=== PATIENT | male | born 1960 | race Caucasian/White ===

== ENCOUNTER 2021-12-09 07:05 | Emergency (ER) | payer OTHER, SELFPAY ==
[2021-12-09 07:06] VITALS: BP 126/80; PULSE 86; RESP 16; TEMP 36.3; O2SAT 98; BMI 27.4
--- NOTE | 2021-12-09 08:00 | EX.ED.DYSGE1 ---
HPI History of Present Illness Chief Complaint: General Illness Informant: patient and spouse/S.O. Narrative Narrative: Patient presents with what they feel is anxiety. He has a history of anxiety. He had an episode of anxiety with depression and suicidal thoughts many years ago but this was triggered by prednisone intake. He has not been on any medicine since. He started a new job 3 weeks ago and the anxiety has gotten very bad. He is not sleeping well. He is not eating well. He has lost 15 pounds. He gets dry heaves. He has acid production. He also has exacerbation of gout in the right ankle. He saw his primary doctor for that yesterday. He was also started on Paxil yesterday but has only had 1 dose. He presents today because he just does not feel well and is nauseated. Nothing really makes his symptoms better. PFSH [facility] Medical History Anxiety Home Medications alprazolam 0.5 mg tablet (Xanax) 0.5 mg PO QHS PRN anxiety 7 days #7 tabs 12/09/21 [Rx Last Taken Unknown] hydroxyzine HCl 25 mg tablet 1 tab PO Q8H PRN PRN Anxiety 12/09/21 [History Last Taken Unknown] paroxetine HCl 20 mg tablet 1 tab PO DAILY 12/09/21 [History Last Taken Unknown] Allergy/AdvReac Type Severity Reaction Status Date / Time prednisone AdvReac Other Verified 12/09/21 07:08 Surgical History Hx of knee surgery Social History Smoking Status: Never smoker ROS ROS ED Constitutional Constitutional ED: Denies chills or fever(s) Eyes Eyes: Denies change in vision ENT ENT ED: Denies rhinorrhea or sore throat Cardiovascular Cardiovascular: Denies chest pain, palpitations or racing heartbeat Respiratory/Chest Respiratory/Chest: Denies cough or dyspnea Gastrointestinal Gastrointestinal: Reports abdominal pain, nausea and vomiting; Denies constipation or diarrhea Genitourinary Genitourinary ED: Denies dysuria Musculoskeletal Musculoskeletal: Reports other Details: Right ankle pain Integumentary Denies rash Neurologic Neurologic: Denies headache(s), paresthesias or weakness Psychiatric Psychiatric: Reports anxiety; Denies suicidal ideation or suicidal thoughts Endocrine Endocrinology: Denies polydipsia or polyuria Hematologic/Lymphatic Hematologic/Lymphatic: Denies easy bleeding or easy bruising Allergic/Immunologic Allergic/Immunologic ED: Denies urticaria EXAM Physical Exam Const Vital Signs: 12/09/21 07:06 12/09/21 07:39 12/09/21 09:59 Temperature 97.4 F L Temperature Source Temporal Pulse Rate 86 73 Respiratory Rate 16 14 Respiratory Effort Normal Non-Labored Respiratory Pattern Normal Blood Pressure 126/80 H 122/85 H Blood Pressure Mean 95 97 Pulse Ox 98 97 Oxygen Delivery Method Room Air Room Air 12/09/21 11:14 Temperature Temperature Source Pulse Rate Respiratory Rate 16 Respiratory Effort Respiratory Pattern Blood Pressure Blood Pressure Mean Pulse Ox Oxygen Delivery Method Positive well nourished and well developed General Appearance ED: well developed HEENT Reports dry mucous membranes Mouth ED: Yes dry mucous membranes Mouth: dry mucous membranes Eyes PERRL General Eye ED: Negative for pale conjunctiva or scleral icterus Neck no lymphadenopathy Chest Wall inspection of chest normal Resp normal respiratory effort and clear to auscultation bilaterally Cardio regular rate, regular rhythm and no murmurs GI normal to inspection, nondistended, normoactive bowel sounds and non-tender GI Narrative: Patient has epigastric discomfort but he has no tenderness on exam. Palpation: soft Back/Spine no CVA tenderness Extremity Extremity Narrative: There is some swelling mostly laterally around the right ankle. No erythema. He can move it back and forth. Neuro oriented x3 Psych Psych Narrative: Mildly flat affect. Skin no rashes or lesions noted MDM MDM MDM Narrative Medical decision making narrative: Patient CBC shows no marked abnormalities. Electrolytes are normal. Total bilirubin is minimally up. Urine is clear. Tox is negative. I talk with the patient. He has significant anxiety related to a new job. He states he has had brief thoughts of self injury. He really has not thought of hurting himself but thought that if he did not wake up it would be okay. He is very honest about this. I appreciate that. I did have social work see him. He and his tried to get into counseling but the earliest appointment they can get is February. Social work agrees that he does not really need to come in the hospital. But they were able to get him hooked up with intensive outpatient psychiatry. Patient will continue his current meds. I will write for a few Xanax mostly to take at night. He was diagnosed with gout in the ankle yesterday. He is not an appropriate candidate for steroids because of his prior issues. He will use Naprosyn twice a day. This is [id number]. He will return with fevers chills sweats worsening pain. He also return if he has increasing thoughts of suicide. Lab Data Attestation: I reviewed the patient's lab results. Labs: Laboratory Results - last 24 hr 12/09/21 12/09/21 12/09/21 08:04 08:04 08:04 WBC 8.0 RBC 4.76 Hgb 15.5 Hct 45.3 MCV 95.2 H MCH 32.6 H MCHC 34.2 RDW Std Deviation 44.2 H RDW Coeff of Hillary 12.4 Plt Count 175 MPV 10.1 Immature Gran % (Auto) 0.300 Neut % (Auto) 73.2 H Lymph % (Auto) 15.8 L [place] % (Auto) 10.0 Eos % (Auto) 0.3 Baso % (Auto) 0.4 Absolute Neuts (auto) 5.8 Absolute Lymphs (auto) 1.26 Nucleated RBC % 0 Sodium 138 Potassium 4.2 Chloride 105 Carbon Dioxide 28.0 Anion Gap 5 BUN 13 Creatinine 0.94 Estim Creat Clear Calc 95.63 Est GFR (MDRD) Af Amer 105 Est GFR (MDRD) Non-Af 87 BUN/Creatinine Ratio 13.8 Glucose 104 Calcium 9.6 Total Bilirubin 1.10 H AST 28 ALT 36 Alkaline Phosphatase 62 Total Protein 7.7 Albumin 3.6 Globulin 4.1 Albumin/Globulin Ratio 0.9 Lipase 53 L Urine Color Urine Clarity Urine pH Ur Specific In[place] Urine Protein Urine Glucose (UA) Urine Ketones Urine Occult Blood Urine Nitrite Urine Bilirubin Urine Urobilinogen Ur Leukocyte Esterase Urine RBC Urine WBC Ur Squamous Epith Cells Urine Bacteria Urine Mucus Urine Opiates Screen Urine Methadone Screen Ur Barbiturates Screen Ur Phencyclidine Scrn Ur Amphetamines Screen MDMA (Ecstasy) Screen U Benzodiazepines Scrn Urine Cocaine Screen U Cannabinoids Screen Ur Drug Screen Comment Ethyl Alcohol < 3.0 12/09/21 12/09/21 09:59 09:59 WBC RBC Hgb Hct MCV MCH MCHC RDW Std Deviation RDW Coeff of Hillary Plt Count MPV Immature Gran % (Auto) Neut % (Auto) Lymph % (Auto) [place] % (Auto) Eos % (Auto) Baso % (Auto) Absolute Neuts (auto) Absolute Lymphs (auto) Nucleated RBC % Sodium Potassium Chloride Carbon Dioxide Anion Gap BUN Creatinine Estim Creat Clear Calc Est GFR (MDRD) Af Amer Est GFR (MDRD) Non-Af BUN/Creatinine Ratio Glucose Calcium Total Bilirubin AST ALT Alkaline Phosphatase Total Protein Albumin Globulin Albumin/Globulin Ratio Lipase Urine Color Yellow Urine Clarity Clear Urine pH 7.0 Ur Specific Inland 1.005 Urine Protein Negative Urine Glucose (UA) Normal Urine Ketones 15 H Urine Occult Blood Negative Urine Nitrite Negative Urine Bilirubin Negative Urine Urobilinogen 4 H Ur Leukocyte Esterase Negative Urine RBC 0 SEEN Urine WBC 0 SEEN Ur Squamous Epith Cells 0 SEEN Urine Bacteria 0 SEEN Urine Mucus 0 SEEN Urine Opiates Screen NEGATIVE Urine Methadone Screen NEGATIVE Ur Barbiturates Screen NEGATIVE Ur Phencyclidine Scrn NEGATIVE Ur Amphetamines Screen NEGATIVE MDMA (Ecstasy) Screen NEGATIVE U Benzodiazepines Scrn NEGATIVE Urine Cocaine Screen NEGATIVE U Cannabinoids Screen NEGATIVE Ur Drug Screen Comment Ethyl Alcohol Discharge Plan Triage Chief Complaint: General Illness ED Provider: Joe Calero Dx/Rx/DC Orders Clinical Impression: Anxiety, Acute gout of right ankle Instructions: Anxiety Disorders Tx Therapy, ED Gout Diet Prescriptions: New alprazolam [Xanax] 0.5 mg tablet 0.5 mg PO QHS PRN (Reason: anxiety) 7 Days Qty: 7 0RF No Action paroxetine HCl 20 mg tablet 1 tab PO DAILY hydroxyzine HCl 25 mg tablet 1 tab PO Q8H PRN PRN (Reason: Anxiety) Primary Care Provider: Chato Platt Referrals: [facility] Doctor,Out of [NON-STAFF] - 3-5 Days Activity Restrictions/Additional Instructions: Follow-up with intensive outpatient psychiatry as planned. Disposition Disposition: Home, Self Care
[2021-12-09] MEDS: 0.9% Normal Saline 1,000 ML 1000 ML IV (08:09)
[2021-12-09] MEDS: Ondansetron 4 MG/2 ML Vial IV (08:10)
[2021-12-09 08:14] LABS: Absolute Lymphocyte Count 1.26 X10^3/uL (0.83-4.51); Absolute Neutrophil Count 5.8 X10^3/uL (2.0-7.7); Basophil# 0.03 X10^3/uL; Basophil% 0.4 % (0-1); Eosinophil# 0.02 X10^3/uL; Eosinophils% 0.3 % (0-5); Hematocrit 45.3 % (40-54); Hemoglobin 15.5 g/dL (13.0-16.5); Lymphocyte # 1.26 X10^3/ul (0.83-4.51); Lymphocyte % 15.8 % (19-41); Mean Corp Hgb Conc 34.2 g/dL (32-36); Mean Corpuscular Hgb 32.6 pg (27.0-32.0); Mean Corpuscular Volume 95.2 fL (80-94); Mean Platelet Vol. 10.1 fl (6.2-12.0); NRBC Flagged by Analyzer 0 % (0-5); Neutrophil # 5.84 X10^3/uL (2.7-7.7); Neutrophil % 73.2 % (47-70); Platelet Count 175 K/mm3 (150-450); RBC Distribution Width CV 12.4 % (11.6-14.6); RBC Distribution Width SD 44.2 fl (35.1-43.9); Red Blood Count 4.76 M/mm3 (4.6-6.2)
[2021-12-09 08:26] LABS: ALB/GLOB Ratio 0.9 RATIO (0.9-2.4); AST(SGOT) 28 U/L (15-37); Alanine Aminotransfer ALT/SGPT 36 U/L (16-61); Albumin, Serum 3.6 g/dL (3.2-5.0); Alkaline Phosphatase 62 U/L (45-117); Anion Gap 5 (5-15); BUN 13 mg/dL (7-18); BUN/Creat Ratio 13.8 RATIO (10-20); Calcium,Total 9.6 mg/dL (8.5-10.1); Chloride 105 mmol/L (98-107); Creatinine, Serum 0.94 mg/dL (0.70-1.30); EST Glomerular Filtration Rate 87 mL/min (>60); Est Glom Filt Rate - Afr Amer 105 mL/min (>60); Estimated Creatinine Clearance 95.63 ml/min; Globulin 4.1 g/dL (2.2-4.2); Glucose 104 mg/dL (74-106); Lipase 53 U/L (73-393); Potassium 4.2 mmol/L (3.5-5.1); Protein, Total 7.7 g/dL (6.4-8.2); Sodium Level 138 mmol/L (136-145)
[2021-12-09 08:29] LABS: Alcohol, Blood (Medical)-Serum < 3.0 mg/dL
[2021-12-09 09:59] VITALS: BP 122/85; PULSE 73; RESP 14; O2SAT 97
[2021-12-09 10:01] LABS: Bacteria 0 SEEN /hpf (None Seen); Mucous, Urine 0 SEEN /hpf (<or=2+); Red Blood Cells-Urine 0 SEEN /hpf (0-5); Squamous Epithelial Cells - UA 0 SEEN /hpf (0-5); White Blood Cells 0 SEEN /hpf (0-5)
[2021-12-09 10:11] LABS: Color, Urine Yellow (Yellow); Glucose, Dipstick Normal (Normal); Ketone-Dipstick 15 mg/dl (Negative); Leukocyte Esterase-Dipstick Negative /ul (Negative); Nitrite-Dipstick Negative (Negative); Occult Blood-Urine Negative /ul (Negative); Protein-Dipstick Negative (Negative); Specific Gravity, Urine 1.005 (1.002-1.030); Urine Bilirubin Dipstick Negative (Negative); Urine Clarity Clear (Clear); Urine Urobilinogen 4 mg/dl (Normal)
[2021-12-09 10:27] LABS: Amphetamine Urine VISTA NEGATIVE (<1000 ng/mL); Barbiturate Urine VISTA NEGATIVE (< 200 ng/mL); Benzodiazepine Urine VISTA NEGATIVE (< 200 ng/mL); Cocaine Urine VISTA NEGATIVE (< 300 ng/mL); Ecstacy Urine VISTA NEGATIVE (< 500 ng/mL); Methadone Urine VISTA NEGATIVE (< 300 ng/mL); PCP Urine VISTA NEGATIVE (< 25 ng/mL); THC Urine VISTA NEGATIVE (< 50 ng/mL); Vista UDS pH Range 6
[2021-12-09 11:14] VITALS: RESP 16
--- NOTE | 2021-12-09 11:33 | ED.RN ---
PER DR MCKEE, PT NEEDS RN EMBEDDED ASSESSMENT. LET RN EMBEDDED KNOW
--- NOTE | 2021-12-09 12:00 | CM.ED ---
Social Work Assessment Social Work Psychiatric Assessment Reason for consult: Anxiety Informant(s) Pt, Pt?s Aure Chief Complaint: Pt states that he has been having anxiety. Pt states that he has recently switched jobs and he is not doing well with switching jobs. Pt states that he is a really quiet carl and not social. Pt states that he does have history of Anxiety and about 15 years ago je was on medication. Pt states that he called his [facility] yesterday and was prescribed medication. Pt states he gets sick to his stomach, he becomes nauseous, pt states that he starts to get Anxious and then one thought leads to another thought which makes him more anxious. Pt states that he doesn?t eat a lot lately and if he does eat, he throws it up. Marital/Social History: Marital Status: Living Situation: Pt states that [place] [facility] [place] . Support/Resources: Pt states his Aure. History: None Education and Employment History: Pt states that he graduated high school. Pt states that he did not go to college. Pt states that he just got a new job after being at his old job for 19 years. Pt states that the new job is closer to his home. Pt states that he works at a [employer]. Pt states that in school he was always teased and hung out with his self. Pt states that he played Baseball and Basketball. Mental Health Treatment/History: Pt states that he is not currently seeing a counselor. Pt states that he tried reaching out to a few agencies but states the earliest he could get in to [facility] was February and the earliest he could get to a different agency was in July. Pt states he has no psych hospitalization history and has never seen a therapist or counselor. Pt states that getting on medication would be helpful and talking to his is very helpful. Triggers/Stressors: Pt states switched jobs and being in the different environment. Pt states that he switched jobs due to this job being closer to home. Pt states that he is hoping to retire soon but states that he does not have the financially ready yet. SW spoke with pt about talking to a financial administrative assistant. Pt states he has not spoken to the financial administrative assistant yet. Pt states that he wants to do a good job at his job and he feels like he is not doing a good job. Pt states that he has stress a lot. Coping Skills: Pt states being home, taking his rescue dog for a walk, being with his , and being with his two daughters. Pt states that he thinks he is going to ask his employer for a few weeks off and will start taking his new medication. Pt states that he is hopeful that his new medication will help. Abuse Issues: Pt states none Substance Abuse Hx: Pt states none Risk to Self/Others: ? Suicidal: Pt denied any current suicidal thoughts/plans/ideations. Pt states that last night he felt bad and had a prayed that if he just stopped breathing it would be ok and that he is ready to go with the Lord. Pt states that he had no suicidal plan. Pt with no history of suicide attempts. Pt states that he does not want to . Pt states that if his Anxiety was better, he would not have those thoughts at all. Pt states that about 19 years ago, he had the same thoughts that it would be ok if he stopped breathing or it would be ok if he didn?t wake up. Pt states that he had two young daughters at that time though. Pt states that the Lord must have something else for him since he is still here. Pt states that his and family are important to him and important to live for them and carry on. ? Homicidal: None ? Violence: None Mental Status Exam: Orientation: Pt is alert and orientated x4. Memory: Good Appearance/General Behavior: Clean/appropriate, Directable, Pleasant Mood/Affect: Appropriate, Pt states that he feels calm now. Communication Pattern: Responds to questions Thought Process: Appropriate General Intellectual Functioning: Average Judgment: Fair Insight: Fair VICKY spoke with pt about different counseling resources and provided pt with Counseling Resources for [facility] and educated pt [facility]. Pt requests his to come back to room. VICKY discussed with MD Calero. Pt to discharge home. VICKY informed MD Calero that pt is agreeable to a referral to [facility], SW to make referral. VICKY back in to speak with pt and pt?s Aure present in room. VICKY discussed counseling resources and [facility] with pt and Aure. Both pt and Aure are agreeable to referral being made to [facility]. Pt completed Safety Plan. VICKY provided original to pt. SW to make referral to [facility]. Plan: Pt to discharge home. Safety Plan completed. Referral to be made to [facility]. Glenna Hawley MSW, VP PUBLIC RELATIONS
--- NOTE | 2021-12-09 22:51 | CM.ED ---
Social Work Note Referral made to [facility]. Glenna Hawley MYSQL DEVELOPER, ENGROSSER
--- NOTE | 2021-12-10 20:43 | CM.ED ---
VICKY called Flaco Morgan cell phone number x2. Voice mail number not set up yet. VICKY called patient's , Aure Morgan and her voice mail number was not set up yet. VICKY attempted to follow up with patient regarding safety plan but due to patient's voice mail not being set up social professionals was unable to speak to patient. Copy of safety plan put in medical record Sharifa BENDER
== END 2021-12-09 12:58 | disposition home or self-care (01) ==
PROVIDERS: Emergency Provider Emergency Medicine; PCP Family Medicine; Visit Provider Emergency Medicine
DX: F41.9 Anxiety disorder, unspecified (principal); M10.071 Idiopathic gout, right ankle and foot; Z79.899 Other long term (current) drug therapy
CPT/HCPCS: 80053; 80307; 81001; 82077; 83690; 85025; 96365; 96375; 99283; J7030; A4216; J2405; J3490

== ENCOUNTER 2021-12-14 08:00 | Outpatient (RCR) | payer OTHER, SELFPAY ==
--- NOTE | 2021-12-14 08:45 | BH.NA_ITS ---
Physical Data - Vital Signs Pulse Rate: 91 Blood Pressure: 139/91 - Height/Weight Height: 1.85 m Weight:: 90.718 kg Weight in Pounds: 200.0 lbs Current Medication Compliance - Medication Compliance Do you take your medication as prescribed?: Yes Nutritional History - Appetite Nutritional Instructions:: If client shows signs of a swallowing problem, weight change of 10 pounds or more in the last month, or is on a diabetic diet, the physician will review and request a dietitian consult, as appropriate. All unintentional weight loss will be referred to the physician for decision on need for dietitian consult. Describe your appetite:: Poor - Client states he has lost 20lbs in the last month. Client states he notes a decrease in his appetite and usually has nausea when he attempts to eat. Client states his eating has been slightly improved in the last week. Functional Assessment - Sleep Pattern Describe any problems with sleeping: Client states he has slept about 7-8 hours per night in the last week while taking Hydroxyzine at bedtime. - Activities Motor Activity:: Functional - Client appears anxious, fidgeting at times Sensory/Communication Assess - Vision Problems Do you have any vision problems?: Glasses - Communication Problems Do you have difficulty understanding what people are saying?: No Medical Problems/History - Musculoskeletal Conditions Musculoskeletal: Other (See comments) - gout- right ankle, recent diagnosis - Pain Assessment Do you have acute or chronic pain?: No Surgical History - Surgical History Have you had any surgeries? If so, list type and date:: No Substance Abuse - Substance Abuse Please describe substance abuse in the last 30 days:: Client denies alcohol, tobacco or substance use. Client states he occasionally drinks coffee, but not daily. Mental Status Summary - Mental Status Significant Findings/Observations on Appearance and Mood:: Client is alert and oriented x 4. Client is casually groomed with good hygiene. Client is wearing a mask. Client's speech has normal rate and volume. Client appears somewhat anxious, fidgeting at times. Client makes logical associations and has normal processing. Client denies delusions/hallucinations. Client denies SI. Suicide Assessment - Suicidal Ideation Are you currently or have you been suicidal in the past?: No - client has had some passive thoughts of , no SI Suicidal Intentional Rating Scale (SIRS): No suicidal thoughts (past or present) Physician Notification: If Active suicidal thoughts/Will not contract for safety is checked, contact physician and document in the Physician Notification section below. Assault History/Potential Past Psychiatric History - MH Treatment Hx Age of first mental health symptoms: Client states he has had high levels on anxiety in the past, maybe 20 years ago, but states he has never been on medication for mental health until very recently. Describe (age, circumstance, etc) any past hospitalizations: None. Current providers for mental health treatment (counselor, psychiatrist, insurance case manager, etc.): None. Fall Risk Assessment - Age Age: Less than 60 - Mental Status Mental Status: Willing & able to ask for assistance when needed - Physical Status Physical Status: No problems - Impairments Impairments: None - Elimination Elimination: Continent AND independent - Gait or Balance Gait or Balance: Walks independently - Hx of Falls History of falls in the past 6 months: No known history - Medications/Substances Psychotropics:: Antidepressants, Antihistamines (e.g. Benadryl) Medications/substances used within the past 24 hours or ordered to administer: 1-2 of the medications/substances listed above - Total Score Total Points:: 1 RN Summary of Impressions - Impressions Recommendations: Include psychiatric and medical issues, treatment planning recommendations, and discharge planning needs. Impressions: Psychiatric Issues: 1. Generalized anxiety disorder. 2. Major depressive disorder, recurrent, severe without psychosis - Level of Care How do the client's current symptoms and functional deficits support need for this level of care?: Client was referred to IOP after recent ER visit for an xiety and passive thoughts of on 12/09. Client states he just changed jobs after about 20 years of having the same job and has had very high levels of anxiety since. Client denies SI at this time. Client does report racing thoughts and decreased concentration. Client states his biggest concern is his recent weight loss of 20 lbs in the last month and his decrease in appetite and feeling nauseous when he tries to eat. Client states he feels he is beginning to feel weaker from lack of appetite and he is worried what this unintentional weight loss will do to his overall health. Client is currently not working due to mental health impacting function. Client recently started Paxil and states in the last week his appetite has improved slightly and he has been able to eat small amounts of food. IOP will promote gains and prevent further decompensation while providing social support and skills training.
[2021-12-14 10:01] VITALS: BP 139/91; PULSE 91
--- NOTE | 2021-12-14 10:05 | BH.SGPN.GN ---
Behaviors/Verbalizations/Mental Status: Client alert and oriented, casually dressed and groomed. Eye contact good. Motor activity appropriate. Speech within normal limits. Affect constricted, mood anxious. Thoughts linear, logical, no signs of hallucinations or delusions. Client Response/Progress/Benefit: [] Client was an active participant in activity and taking notes during group discussion. Attentive during psychoeducation on coping skills, why people use unhealthy coping skills, and how to replace unhealthy coping skills. Client did not shared much in put due to visible nervousness of first day at IOP. Benefited from increased understanding of unhealthy coping skills and the need for developing healthy interna and external coping skills. Client's first day of IOP and will continue to prevent decompensation, maintain safety, increase management of anxious feelings, and improve daily functioning. Narrative Note: []
--- NOTE | 2021-12-14 11:05 | BH.SGPN.GN ---
Behaviors/Verbalizations/Mental Status: [] Client alert and oriented, neatly dressed and groomed. Eye contact fair to good. Motor activity appropriate. Speech within normal limits. Affect constricted, mood anxious. Thoughts linear, logical, no signs of hallucinations or delusions. Client Response/Progress/Benefit: [] Client first week in IOP tx and still adjusting to group environment; however, responded well to session AEB taking notes and providing input and examples throughout. Group discussed the different categories of coping skills which included distraction, emotional release, grounding, self-love, and thought challenging. Client created a coping skill menu identifying various skills he could try in each category. Client?s coping skill menu included: engaging in more hobbies such as gardening, shifting focus on what is in his control, and cooking meals with his . Appeared to benefit from increasing repertoire of healthy coping skills. Will continue tx to further promote mood stability, improve distress tolerance skills, maintain safety, and prevent decompensation. Narrative Note: []
--- NOTE | 2021-12-14 12:32 | BH.PSY.EVA_ITS ---
Psychiatric Evaluation Initial Evaluation Initial Evaluation: History of Present Illness: [] The patient is a 61-year-old male with a history of depression and anxiety who was referred to the [facility] behavioral health IOP program by the [facility] emergency room after the patient went to the emergency room on December 09, 2021 due to severe anxiety and passive thoughts of . The patient states that his anxiety has increased since giving 2 weeks notice at his old job which she had held for 19 years. 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 However since he made this decision his anxiety has been increasing to the point where he has been unable to eat much secondary to severe anxiety with nausea and dry heaves and sometimes vomiting after eating. He has lost 20 pounds in the past 4 weeks and he feels weak due to this and this bothers him and makes his mood more depressed. He has been for 32 years and currently lives with his who works as a court supervisor for [employer]. His is his source of primary support and he describes her marriage as good. The patient has been unable to work since less than a week ago due to these mental health symptoms. He drinks coffee not even daily and no energy drinks. He denies any history of self-harm. He currently has depressed mood and occasional crying episodes. He denies hopelessness, worthlessness or guilt. He has been enjoying walking his dog and being outside and with family. His appetite has been very decreased and as described above he has lost lots of weight. His sleep is now better with the medication and it is now about 7 hours a night. Energy level is low during the day he believes secondary to not being able to eat. Concentration is decreased and he admits to passive thoughts of in the past few weeks. He has had rare, fleeting suicidal ideation but he feels that suicide is wrong and his and daughter are protective factors for him against suicide. He denies any definitive plan for suicide and denies a ctive suicidal ideation. He also denies homicidal ideation, hallucinations, delusions or ching symptoms. He is a worrier by nature and has some racing thoughts. He denies panic attacks. He does some counting daily but it last for less than 1 hour a day and does not meet criteria for OCD. He denies eating disorder, trauma, PTSD, seizure or head trauma. Current Psychiatric Medications: [] Paxil 20 mg p.o. daily (x4 days now but forgot to take it today); Vistaril 25 mg up to 3 times daily as needed but he is only taking it at bedtime to help with sleep.; Xanax 0.5 mg p.o. nightly as needed (7 days worth given in the ER but he only took 1 of these). Past Psychiatric History: [] No psychiatric admissions ever. No suicide attempts ever. He was first severely anxious about 15 years ago after taking prednisone and becoming severely anxious and having passive thoughts of . He first had counseling about 20 years ago for anxiety over a job change also but did not take medication for this and this resolved with counseling alone. He was first depressed in fifth grade and anxious and did not want to go to school. He feels something happen but he does not remember what happened. He changed schools and then eventually was able to attend school. His first psychiatric medications he thinks are the current ones and does not remember taking any other meds. Substance Use History: [] Non-smoker. No vaping. No alcohol. No drugs. No marijuana. No rehab ever. Allergies: [] Prednisone (just anxiety and mood change) Medications: [] Psych meds only as dictated above. Past Medical History: [] Gout in right ankle which is better now. He has a history of blood clots in his leg and had some sort of procedure intravenously to fix this problem. He has had 1 arthroscopy on his knee but no other surgeries. He denies any other medical problems. Family Psychiatric History: [] His mother at age 79 from Parkinson's disease. His father at age 53 from cancer. He denies any mental health issues in the family. No suicides in the family. No substance issues known in the family. Personal/Social History: [] The patient was born and raised in [facility] and describes his childhood as normal. His parents were and his dad worked a lot and his mother drove for [employer] people and he says he was on his own a lot with his brothers. His mother was loving but his father was not demonstrative at all. He denies any physical, sexual or verbal or emotional abuse in the past. He has 4 brothers he is the second youngest. His youngest brother at age 19 of unknown known causes and this brother was only 2 years younger than the patient and was a big loss for the patient as they were very close and had the same friends. The patient also has a brother 7 years older, 5 years older and 3 years older than him and they are close. School was okay for the patient but in fifth grade there was some sort of issue he does not recall the nature of which had him not willing to go to school for about 6 weeks. His parents changed schools and then eventually was able to return to school. He played sports and was a pretty good athlete. He was teased in [employer] high in high school and did not have that many friends in 100 he has 2 adult daughters. He was at age 29 and has been for 32 years and has a good marriage and has 2 adult daughters. No other serious relationships. Legal History: [] No arrests. Has cdl driver's license. No DUIs. No . Review of Systems: [] He recently had some pain and swelling in his right ankle due to gout which is now better and he has had the GI symptoms as described in the present illness which she feels are due to anxiety. Vital Signs: [] Vital signs and exam reviewed in the records and reviewed in the nurses notes and updated and the patient is deemed medically able to participate in the IOP program. Mental Status Examination: [] The patient is a 61-year-old male who is seen wearing a mask due to the pandemic and is casually dressed and groomed with good hygiene. He has a randolph. He is cooperative during the interview but at times has some difficulty with remembering details. He has no psychomotor agitation or retardation. Eye contact is good and speech is normal rate and rhythm and fluent with no pressure. Mood is depressed and anxious. Affect is constricted. Thought process is goal-directed and organized. Thought content: There is evidence of recent passive thoughts of in recent weeks and there is evidence of rare, fleeting, passive suicidal ideation. There is no evidence of active suicidal ideation, plan for suicide, homicidal ideation, hallucinations, delusions or symptoms of ching. The patient feels suicide is wrong and his and daughters are protective against it. Reality testing is intact. Intelligence is average. Judgment is intact. Insight: Fair. Impulsivity: Low. Diagnoses: [] 1. Generalized anxiety disorder 2. Major depressive disorder, recurrent, severe without psychosis 3. Work issues Plan: [] The patient will start the IOP program at [facility] as the structure, support, education and group therapy will hopefully prevent worsening of the patient's symptoms which might require hospitalization. He felt safe during the interview and if it anytime he does not feel safe he will let us know or go to the emergency room. The risks, options, possible complications and side effects of the medications were discussed with the patient and he understands and accepts these. Discussion was had with the patient about options for treatment. The patient is tolerating the Paxil but has only taken it for 4 days and it may require several weeks to give him much benefit. Due to the fact that the patient is unable to eat and is losing weight and feels weak and is upset about this I offered the patient the option of Remeron 15 mg p.o. nightly to be added to the Paxil. The patient understands this will help him sleep, decreasing his anxiety and greatly helped his ability to eat and maintain his weight and stop losing weight. He understand that there is a risk of weight gain but he may be able to stop the Remeron in a month when the Paxil starts taking effect. In addition he feels he will be able to benefit from the IOP program if his anxiety is lessened faster than it will be with the Paxil. Prescription is sent in for Remeron 15 mg p.o. nightly. The patient will continue to follow-up with his outpatient providers and I will see the patient in follow-up in 2 weeks or as needed sooner.
--- NOTE | 2021-12-14 12:46 | BH.DR.ITP ---
Initial Treatment Plan Patient Information Visit Information: ADMISSION DATE: EXPECTED LOS: 4-6 weeks Problems/Symptoms Problem #1:: Anxiety Symptom:: Worry, racing thoughts, nausea, inability to eat, vomiting and weight loss secondary to anxiety Problem #2:: Depression Symptom:: Sadness, biological disruption of sleep and appetite, low energy, decreased concentration, recent passive thoughts of and rare, fleeting, passive suicidal ideation
--- NOTE | 2021-12-19 09:10 | BH.SGPN.GN ---
Behaviors/Verbalizations/Mental Status: [] Eye contact is good. Motor activity is appropriate. Appearance is casual. Speech is Appropriate. Mood is anxious. Affect is congruent. Thoughts are linear and logical. No evidence of psychosis. Reviewed daily check in sheet and no reports of suicidal ideations or intent. Client Response/Progress/Benefit: [] Pt participated when prompted. Attentive during group discussions. Emotion for today is anxious. Daily symptom tracker notes 5 for depression and /5 for anxiety. He reports that he has some relief over the weekend regarding his constant anxiety. He was able to distraction himself while watching a movie and while helping out his with certain tasks. He states that this is improvement as last week his anxious thoughts about work were constant and intrusive. Awareness that his anxiety is based primarily on change which he has struggled with in the past. Shared that he also noted improved sleep and appetite over the weekend. Progress noted per pt report however anxiety remained outside of a few hours of distraction. Benefited from group support, encouragement and feedback. Will continue in IOP to improve functioning to return to work, maintain safety, and to increaser healthy coping skills. Narrative Note: []
--- NOTE | 2021-12-19 10:10 | BH.SGPN.GN ---
Behaviors/Verbalizations/Mental Status: [] Client alert and oriented, casually dressed and groomed. Eye contact good. Motor activity appropriate. Speech within normal limits. Affect constricted, mood anxious. Thoughts linear, logical, no signs of hallucinations or delusions. Client Response/Progress/Benefit: [] Client responded well to session AEB contributing to discussion, taking notes, and listening attentively to others. Group discussed the benefits of managed anger and anger as a secondary emotion. Client completed anger iceberg worksheet, with Identifying underlying emotions that contribute to anger including the unexpected, misunderstanding, and anxiety. Appeared to benefit from increased knowledge of the underlying emotions that impact anger and increased self-awareness of the internal and external consequences of anger. Will continue IOP tx to prevent decompensation, as well as increase the use of healthy coping skills and decrease of anxious thoughts. Narrative Note: []
--- NOTE | 2021-12-19 13:00 | BH.MTP ---
Master Treatment Plan - Patient Information Program Physician:: Lynnette Caldera Primary Therapist:: Arias Jordan - Psychiatric Diagnoses Psychiatric Diagnoses:: 1. Generalized anxiety disorder. 2. Major depressive disorder, recurrent, severe without psychosis Diagnosis Code(s):: F41.1 - Estimated LOS Estimated LOS (in weeks):: 6 Problem/Goal #1 - Problem/Goal #1 Stated Goal:: Stabilize anxiety level while increasing ability to function on a daily basis AEB self-report and reduction of scores on the anxiety domain of the DSM-5 scales. Description of Barriers: Limited insight in anxiety and emotion regulation, limited coping skills, struggles significantly with change. Functional Impact: Pt has not been to work in a week due to overwhelming anxiety. Anxiety has also led to disrupted sleep, poor appetite, weight loss, and inability to complete daily tasks. Goal Relevant Strengths/Supports: motivated, strong support, hard-working - Objectives Objective #1 Stated Objective: Client will identify 2-3 anxiety triggers and 2 calming coping skills to reduce anxiety as shown by decreased DSM-5 cross cutting symptom measure scores. Interventions: Through individual and group counseling will help client increase awareness of anxiety triggers and educate client on the ways anxiety impacts overall health. Therapist will teach client various calming and mindfulness strategies to promote emotional regulation and reduction of anxiety. Therapist will encourage client to implement healthy coping skills on a regular basis. Discharge Criteria: Able to identify 2-4 thoughts, expectations, and triggers to anxiety and 2-4 ways to cope or reduce anxiety. Target Date: 02/01/22 Review Date: 01/11/22 Objective #2 Stated Objective: Client will identify 2-3 cognitive distortions that lead to rumination and learn 2-3 ways to manage these thoughts to better manage anxiety. Interventions: Through individual and group counseling will provide education on the most common cognitive distortions and teach client the connection between thoughts, emotions, and feelings. Therapist will assist client in identifying, challenging, and replacing dysfunctional thoughts with positive, more realistic thoughts. Discharge Criteria: Able to identify 2-3 common cognitive distortions used and 2-3 ways to challenge, reframe, or replace these distortions. Target Date: 02/01/22 Review Date: 01/11/22 Problem/Goal #2 - Problem/Goal #2 Stated Goal:: Alleviate depressive symptoms and return to previous level of effective functioning AEB by self-report and reduction of scores on the depression domain of the DSM-5 SCALES. Description of Barriers: Limited insight into depression and emotion regulation, limited coping skills, struggles significantly with change. Functional Impact: Pt's anxiety, intrusive thoughts, and inability to complete work lead to passive suicidal ideations and presentation to [facility] ER last week. If he continues to decompensate this will lead to further distress. Goal Relevant Strengths/Supports: motivated, strong support, hard-working, open to learning about mental health. - Objectives Objective #1 Stated Objective: Client will identify and replace 2-3 negative thinking patterns that reinforce depressive symptoms, self-hate, and negative self-talk. Interventions: Through individual and group counseling will provide psychoeducation on depression and help client increase awareness of warning signs and triggers. Therapist will promote client self-empowerment and self-esteem by helping client identify strengths, personal resilience factors, and positives of boundary setting. Discharge Criteria: Able to identify and replace negative thinking patterns. Target Date: 02/01/22 Review Date: 01/11/22
--- NOTE | 2021-12-19 13:00 | BH.PSA_ITS ---
Source of Information - Presenting Problems/Circumstances Problems, Referral Source, Mental Status, Client: Pt was referred to [facility] by [facility] ER after presenting in mental health crisis on 12/09/21. Pt completed crisis assessment for severe anxiety and survival ambivalence and referred to [facility] level of care. Psychiatric Presentation - Psych Issues & Need for Admission Psychiatric Issues:: Anxiety, depression, unable to work due to MH, poor sleep, poor appetite (lost 15lbs in 3 weeks), survival ambivalence. Past Psychiatric History - MH Treatment Hx Treatment History: Counseling 20 years ago for anxiety First hospitalization:: n/a Most recent hospitalization:: n/a Medication Trials:: No ECT Therapy:: No Age of first mental health symptoms: Pt reports that while in the 5th grade he was very depressed and anxious which led to missing school. Cannot recall much m ore than this. Describe (age, circumstance, etc) any past hospitalizations: n/a Current providers for mental health treatment (counselor, psychiatrist, caseworker intake, etc.): none currently Development & Family of Origin - Childhood Significant Childhood Events: none reported. Reports normal childhood. He recall that something happened at school when he was in the 5th grade which led to missing 6 weeks of school and eventually transferring to another school. - Family Who currently lives in your home?: Currently lives with his . Describe family composition:: for 32 years. He has two adult daughters. - Family History Family Hx of Psychiatric or AOD Problems: No hx of mental health or substance abuse in the family Ethnicity - Culture Do you identify yourself with any particular cultural, ethnic background, or community?: No - Sexuality Sexual Orientation: Heterosexual Spirituality - Yarsani Do you currently identify with any organized advent?: Methodist - Beliefs Is there a particular form of support from this community you can use for your recovery?: Yes Mental Status - Memory Recent Memory: Fair Remote Memory: Fair - Concentration Concentration: Poor - Eye Contact Eye Contact: Poor - Speech Speech: Repetitious, Soft - Thought Process Thought Process: Ruminations Insight: Poor Judgment: Poor Behavior: Anxious - Orientation Orientation: Time, Person, Place, Situation - Appearance Appearance: Appropriate - Mood Mood: Anxious, Sad - Affect Affect: Flattened Suicide Assessment - Suicidal Ideation Have you ever felt like hurting yourself?: Yes Please explain:: Pt reported to [facility] ER social work on 12/09/21 that he prayed that if he just stopped breathing it would be OK and he is ready to go with the Lord Were you using ETOH/drugs at the time?: No Suicidal Intentional Rating Scale (SIRS): Suicidal thoughts (past) Physician Notification: If Active suicidal thoughts/Will not contract for sa eliciay is checked, contact physician and document in the Physician Notification section below. Violent Behavior/Abuse History - Homicidal Ideation Do you have any homicidal thoughts? If so, explain:: No Is there a known potential victim? If yes, who:: No - Abuse Have you ever been abused?: No - Life Events Are there any other significant life events?: - Pt's younger brother when patient was 23 years old. - Safety Do you ever feel threatened in your home? If yes, describe:: No Adult Social History - Age 20 to Present Describe your current support system:: , 2 adult daughters Substance Use - Substance Substance Use Type: None Leisure/Social Activities - Interests What do you enjoy or might be interested in learning about?: Wants to learn how to manage his anxiety so he can return to work. Education & Occupational Histo - Education What is your level of education?: High School - Occupation List any current or past employment:: Pt was employed for 20 years at a [employer]. Recently quit and took on new job at another [employer] company. Service - Service Have you ever been in the ?: No Legal History - Records Have you had any past legal charges?: No Do you have any current legal charges?: No Have you ever been incarcerated? If yes, describe:: No - Court Orders Have you had any past court orders for psychiatric treatment?: No Do you have a present court order for psychiatric treatment?: No Problem Checklist - Current Problem Areas Problem List: Depressed mood/sad, Anxiety Discharge Planning Needs - Anticipated Follow-Up Primary Care Physician: Chato Platt Family and Caregiver Contacts:: Sonam Morgan- Release of Information Signed:: Yes Evidence Technician's Assessment - Client's Needs What are the client's feelings about the program?: He admits that he is anxious however hopeful that IOP will help him with anxiety and returning to work. What are the client's goals?: manage my anxiety and worry and to quit feeling like this all the time. What are the client's strengths?: hard worker, observant, motivated to learn. Diagnoses - Diagnoses Diagnosis #1:: Generalized Anxiety D/O Diagnosis #2:: Major depressive disorder, recurrent, severe without psychosis Interpretive Summary - Interpretive Summary Interpretive Summary: Pt is a 61 year old male with hx of [place]. No previous psychiatric admissions. Referred to [facility] by [facility] ER after presenting with mental health crisis on 12/09/21 for severe anxiety which was impacting functioning. During ER assessment pt reported survival ambivalence and passive thoughts of prayed that if he stopped breathing it would be OK. Denies active SI, plan, or intent. No hx of attempts. Primary stressor is that he started a new job 3 weeks ago. He went to work on two occasions and his anxiety has been so severe he has not returned. Endorses nausea, racing thoughts and poor sleep. I can't turn my brain off. Ruminates for a majority of the day with limited benefit from distraction or coping skills. Pt has lost 15lbs in 3 weeks due to anxiety and poor appetite. Denies HI or psychosis. Denies substance abuse. Treatment Plan Recommendations - Recommendations Guidelines: Special needs identified to be included in the development of an individualized treatment plan regarding past psychiatric history and treatment, developmental events, family relationships/events/culture, past and/or current educational, occupational, social, and residential experience, and legal status. Recommendations:: Due to mental health interfering with functioning (familial, social, and work), survival ambivalence, and no current coping skills recommended IOP level of care. Pt has not providers and is unable to get in for the several weeks.
--- NOTE | 2021-12-19 13:24 | BH.MDN ---
Multi-Disciplinary Note - Note 60-min Individual Time Started:: 11:05 Date: 12/19/21 Purpose of session/treatment goals addressed:: Reviewed progress and current symptoms. Used the session to develop treatment plan, build rapport, and discuss history. Eye Contact:: Good Motor Activity:: Restless Appearance:: Disheveled Speech:: Rapid Mood:: Anxious Affect:: Congruent Thoughts:: Linear, Logical, No evidence of hallucinations/delusions noted Staff Interventions:: thought challenging, mindfulness skills, rapport building, treatment planning Client Response:: Pt shared that he ruminates extensively on his new job and not meeting expectations. Aside from a few hours while watching a movie and helping his with a task he was worried about his job. Most of the time I think about my job. He has lost over 16lbs due to his anxiety and his rumination which ultimately led him to the ER on 12/09/21 with panic, anxiety, and passive thoughts of . He cannot recall his anxiety being this bad at any other point in his life. Admits that change is difficult for him. He switched to a new job on 12/06/21 and attended 2 days before his anxiety became overwhelming and impacted his ability to return to work. His thoughts appear to be related to high or unrealistic expectations that he has placed on himself in the new job; Am I doing a good enough job... Am I disappointing them ... Am I going to be a good role model. To his knowledge his new employer had no concerns and did not mention any issues with his work for those 2 days. I'm not a very confident person. Open to discussion on challenging current thoughts and unrealistic expectations on his performance. We talked about accepting that he will make mistakes, have to ask for help, and may mess up often as he learns the new job for several weeks to months which is normal. His goals for IOP are to manage my anxiety and worry and to quit feeling like this all the time. Risks/Concerns:: no risks or concerns noted. Progress Toward Goals/Plan:: Progress noted per pt report. He states that he ate better this weekend which may be related to starting a new medication last week. Also able to distraction himself on two occasions (not for very long) from his constant anxious thoughts. He states that he has learned a lot in the 2 days that he has been here and finds the psychoeducation and support helpful. He is very anxious and feels pressure to return to work. He is not on FMLA (new hire) and plans to return to work for a half-day later this week. He was open to education on reframing and challenging thoughts and responded well with a couple thoughts that he gave as examples. Was given task to write down overwhelming thoughts when they occur and bring into IOP so we can work more on challenging, reframing, coping skills, and some mindfulness techniques. Will continue in IOP to maintain safety, prevent decompensation, and to transition back to work. Time Stopped:: 12:10
--- NOTE | 2021-12-20 09:00 | BH.SGPN.GN ---
Behaviors/Verbalizations/Mental Status: []Pt alert and oriented, casually dressed and groomed. Eye contact good, motor activity appropriate, speech WNL. Affect constricted, mood hopeful. Thoughts linear, logical, no signs of hallucinations or delusions. No risk reported on pt's daily symptom tracker. Client Response/Progress/Benefit: [] Pt responded well to session, receptive and engaged. Pt reports feeling relieved this morning as pt feels like IOP is a good program for him and he feels a connect here. Pt stated last night he cooked dinner for himself and his and ate better than he has been. Pt also has been learning a lot of coping skills. Pt's stressor is that he is going back to work later this week and he feels anxious about this. Pt wants to see how it goes and he was given advice on how to cope with negative thinking at work which pt appeared to benefit from. Pt will continue IOP tx to prevent decompensation, improve work-related functioning, and increase ability to cope with anxiety. Narrative Note: []
--- NOTE | 2021-12-20 10:10 | BH.SGPN.GN ---
Behaviors/Verbalizations/Mental Status: [] Eye contact is good. Motor activity is appropriate. Appearance is casual. Speech is Appropriate. Mood is anxious. Affect is congruent. Thoughts are linear and logical. No evidence of psychosis. Client Response/Progress/Benefit: [] Client responded well to session AEB sharing when prompted and listening attentively to others. Client participated in group discussion defining boundaries and why having healthy boundaries is important. Client appeared to connect to psychoeducation on types of boundaries, including physical, emotional, and intellectual. Client listened attentively and nodding throughout discussion in which group members shared personal examples of different types of boundaries. Client discussed importance of emotional boundaries. Client appeared to benefit from increased knowledge of the types of boundaries and increased self-awareness of personal boundaries. Will continue IOP treatment to increase overall functioning, improve use of self-compassion and use of independent coping skills. Narrative Note: []
--- NOTE | 2021-12-20 11:15 | BH.SGPN.GN ---
Behaviors/Verbalizations/Mental Status: [] Client alert and oriented, casually dressed and appropriately groomed. Eye contact good. Motor activity appropriate.? Speech within normal limits. Affect congruent, mood anxious and euthymic. Thoughts linear and intact. no signs of delusions or hallucinations. Client Response/Progress/Benefit: [] Client responded well to session AEB listening attentively to peers, providing input, as well as taking notes throughout. Client contributed throughout psychoeducation on different boundary setting styles and processing with group results of continuum. Reported connecting with healthy boundary style the most, but did discuss how she doesn't ask for help enough and sees the negatives from not reaching out enough. Participated in group discussion brainstorming on potential negatives and positives of different boundary setting styles. Group provided with [place] setting tips and homework to practice one new boundary setting skill. Seemed to benefit from increased awareness of how different boundary styles can impact mental health. Will continue IOP tx to increase consistent application of skills, increase self-care and anxiety management, and prevent decompensation. Narrative Note: []
--- NOTE | 2021-12-21 09:00 | BH.SGPN.GN ---
Behaviors/Verbalizations/Mental Status: []Pt alert and oriented, casually dressed and groomed. Eye contact fair. Motor activity appropriate. Speech within normal limits. Affect congruent, mood anxious. Thoughts linear, logical, no signs of hallucinations or delusions. Reviewed pt?s symptom tracker, no risk for suicidal ideation, plan, or intent. Client Response/Progress/Benefit: []Client responded well to session AEB client listening attentively to peers and sharing thoughts and feelings. Client reported mental health positive and stressor as going back to work tomorrow. Client stated going back to work is a positive because he does want to start working again, however this is also a stressor because work has been a trigger for anxiety. Client reported mental health positive as going to a concert at the [facility] last night with his . Client reported he was able to stay in the moment and not ruminate while at the concert. Progress noted AEB client using skill of changing environment to cope with increased anxious thoughts. Seemed to benefit from expressing thoughts and feelings. Client to continue IOP to increase healthy coping, assist client with transition back to work and prevent decompensation. Narrative Note: []
--- NOTE | 2021-12-21 10:15 | BH.SGPN.GN ---
Behaviors/Verbalizations/Mental Status: []Pt alert and oriented, casually dressed and groomed. Eye contact good. Motor activity appropriate. Speech within normal limits. Affect constricted, mood anxious. Thoughts linear, logical, no signs of hallucinations or delusions. Client Response/Progress/Benefit: []Pt responded well to session AEB sharing and listening attentively to others. Pt participated in group discussion defining taking action and sharing coming to IOP as a personal example. Group identified barriers to taking action, with examples of fear of failure and not wanting to feel uncomfortable. 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 Pt identified self-doubt, fear, setting high expectations, and not giving himself credit as driving their ?bus? most often.? Pt shared if they could gain control over these things pt would be more confident at work and even keeled. Appeared to benefit from increased self-awareness and knowledge regarding examples and barriers to taking action. Will continue IOP tx to prevent decompensation, improve daily functioning, and increase use of emotional regulation skills. Narrative Note: []
--- NOTE | 2021-12-21 11:15 | BH.SGPN.GN ---
Behaviors/Verbalizations/Mental Status: [] Eye contact is good. Motor activity is appropriate. Appearance is casual. Speech is Appropriate. Mood is anxious. Affect is congruent. Thoughts are linear and logical. No evidence of psychosis. Client Response/Progress/Benefit: [] Pt did not participate in group discussions however was attentive during psychoeducation on the Zones of Change which included the comfort zone, learning zone, and danger zone. Attentive during group discussion regarding behaviors, thoughts, and feelings associated with each zone. Participated in group activity in which they developed a plan to take action on something they wished to change. Pt chose to take action on worrying about my work performance in which he identified a SMART goal to go to work and focus on positives and identify a positive experience daily. Identified supports that he needed as self-encouragement, focus on what I can control. Benefited from increased self-aware of zones of change and developing an action plan. Will continue in IOP to improve functioning to return to full-time work, increase healthy coping, and to prevent decompensation. Narrative Note: []
--- NOTE | 2021-12-21 16:02 | BH.MDN ---
Multi-Disciplinary Note - Note 30-min Individual Time Started:: 12:15 Date: 12/21/21 Purpose of session/treatment goals addressed:: Reviewed current progress and symptoms. Addressed treatment plan goal 1 and 2. Pt wants to return to work on a reduced schedule tomorrow so used the session to review very basic calming and coping skills. Eye Contact:: Good Motor Activity:: Appropriate Appearance:: Disheveled Speech:: Appropriate Mood:: Anxious Affect:: Congruent Thoughts:: Linear, Logical, No evidence of hallucinations/delusions noted Staff Interventions:: psychoeducation on: - calming and coping skills for anxiety., CBT techniques, mindfulness skills Client Response:: Pt reports that his anxiety has gotten a lot better since he met with this therapist earlier this week. He responded well to challenging his unrealistic expectations regarding his job. He also spoke with his employer which helped decrease his anxiety and worry about missing work due to mental health. He is motivated to return to work tomorrow and feels ready. I just need to get back to it. Feels that he is in a better mental state than last week where his anxiety was crippling. We used the session to go over mindfulness skills, breathing skills, and some very easy affirmations to use tomorrow. Pt states my plan is to get to work and simply find my boss ? its normal to make mistakes ?. I can ask questions if I'm confused. His thinking is less rigid and his expectations are lower and more realistic. Risks/Concerns:: no risks or concerns noted. Progress Toward Goals/Plan:: Progress noted. Pt is returning to work on reduced schedule tomorrow. This was his decision as he feels that getting back into the work routine will be beneficial. Also believes that his anxiety has reduced from the previous 2 weeks. Consistent and engaged in IOP. Reports benefiting from group education and support. Has gained several new coping skills for anxiety. Plan is to continue in IOP to prevent decompensation, decrease anxiety, and increased functioning to return to work. Time Stopped:: 12:45
--- NOTE | 2021-12-26 09:05 | BH.SGPN.GN ---
Behaviors/Verbalizations/Mental Status: [] Eye contact is good. Motor activity is appropriate. Appearance is casual. Speech is Appropriate. Mood is euthymic. Affect is full. Thoughts are linear and logical. No evidence of psychosis. Reviewed daily check in sheet and no reports of suicidal ideations or intent. Client Response/Progress/Benefit: [] Pt participated at times during the group discussion. Attentive. Provided appropriate feedback. Daily symptom tracker notes significant decrease in anxiety from last week. Emotion for today is tired. Mental health wins are I made it through work and Sunday. Not sure why I was so overwhelmed the past few weeks. He worked half days both and Sunday and states it went well. Utilized coping skills and thought reframing going to and while at work to manage thoughts and behaviors. Challenging his negative/anxious thoughts and utilizing affirmations appeared to be the most helpful. Shared how his thinking and his high expectations were causing significant anxiety and were a big obstacle for him in the past. For the last 2 weeks he reports he was consumed with anxious thoughts, worries, and fear related to his future and his job. Last Sunday he stated 1-2 hours of being able to distraction himself and function at baseline. This weekend reports minimal distress. Progress noted per pt report. Benefited from group support, encouragement, and feedback. Will continue in IOP to prevent decompensation, increase healthy coping, and transition back to work. Narrative Note: []
--- NOTE | 2021-12-26 10:10 | BH.SGPN.GN ---
Behaviors/Verbalizations/Mental Status: []Pt alert and oriented, casually dressed and groomed. Eye contact good. Motor activity appropriate. Speech within normal limits. Affect constricted, mood euthymic. Thoughts linear, logical, no signs of hallucinations or delusions. Client Response/Progress/Benefit: []Pt connected with topic of Anxiety and participated throughout, providing input and taking notes. Attentive during psychoeducation on different anxiety disorders and participated throughout interactive discussion defining anxiety and identifying safety behaviors and physiological symptoms of anxiety. Pt?s safety behaviors included avoidance, not eating, and canceling plans. Physiological symptoms reported by patient included: increased heart rate, shaking, restlessness, and feeling sick to his stomach. Benefited from increased awareness and insight on anxiety and its impact. Pt will continue IOP tx to improve work-related functioning, further decrease anxiety, and increase application of healthy coping skills. Narrative Note: []
--- NOTE | 2021-12-26 11:10 | BH.SGPN.GN ---
Behaviors/Verbalizations/Mental Status: []Pt alert and oriented, casually dressed and groomed. Eye contact good. Motor activity appropriate. Speech within normal limits. Affect constricted, mood euthymic. Thoughts linear, logical, no signs of hallucinations or delusions. Client Response/Progress/Benefit: []Pt an active participant AEB providing input to discussion and sharing examples throughout. Reviewed how anxiety impacts thinking. Pt identified personal anxious thoughts such as over-thinking and what ifs. Attentive during psychoeducation on mindfulness coping skills and their impact on mental health wellness. The group worked together to brainstorm anxiety reduction strategies. Pt reported they will focus on doing yard work and being present outside today to manage anxiety. Pt seemed to benefit from increased repertoire of anxiety reduction skills. Pt will continue IOP tx to improve work-related functioning, reduce negative thinking, and improve mood stability. Narrative Note: []
--- NOTE | 2021-12-27 09:00 | BH.SGPN.GN ---
Behaviors/Verbalizations/Mental Status: [] Client alert and oriented, casually dressed and groomed. Eye contact good. Motor activity appropriate. Speech within normal limits. Affect congruent, mood euthymic, Thoughts linear, logical, no signs of hallucinations or delusions. Reviewed client?s symptom tracker, no risk for suicidal ideation, plan, or intent as of 12/27/21 Client Response/Progress/Benefit: [] Client responded well to group by actively participating with wanting to be the first one to share. Client shared how yesterday he went outside to do yard work which was the first time in awhile and felt very good about it. client shared how he has stressor of starting his job last week but is doing well with the change and feels he is in a better place. Reported that his emotion of the day was upbeat. Client seemed to benefit from feedback from group members and continued support. .He will continue IOP tx to increase coping skills, reduced irritability, and increase overall functioning with expected discharge next week. Narrative Note: []
--- NOTE | 2021-12-27 10:05 | BH.SGPN.GN ---
Behaviors/Verbalizations/Mental Status: [] Eye contact is good. Motor activity is appropriate. Appearance is casual and grooming tended to. Speech is Appropriate. Mood is euthymic. Affect is congruent. Thoughts are linear and logical. No evidence of psychosis Client Response/Progress/Benefit: [] Client receptive of session, quiet, but taking notes and nodding at times. Appeared to connect with group topic of cognitive distortions and the impact of thought patterns on mental health, coping behaviors, and relationships. Client nodded at peer examples of distortions such as all or nothing and overidealizing. Client making progress in becoming more social in group setting and increasing communication. Client appeared to benefit from gaining insight on distorted thinking patterns and how this impacts overall mental health. Will continue IOP tx to decrease anxiousness, reduce negative thinking patterns, and improve overall thinking. Narrative Note: []
--- NOTE | 2021-12-27 11:46 | BH.MDN ---
Multi-Disciplinary Note - Note 30-min Individual Time Started:: 11:00 Date: 12/27/21 Eye Contact:: Good Motor Activity:: Appropriate Appearance:: Casual Speech:: Appropriate Mood:: Euthymic Affect:: Full Thoughts:: Linear, Logical, No evidence of hallucinations/delusions noted Staff Interventions:: discharge planning, other - Reviewed progress and developed plan for upcoming week. Client Response:: Pt returned to work last week on reduced scheduled and reports everything went well. He shared some of his wins and struggles during those days. I'm feeling more comfortable there. Feels that he is back to baseline after two positive days at work. He believes that he is more confident in his ability to manage anxiety/stress. Increased confidence in his ability to perform well at his job as well. Very motivated to return back to full-time work which we discussed further. Risks/Concerns:: No risks or concerns noted. Progress Toward Goals/Plan:: Progress noted. Pt reports significant decrease in anxiety and depression from last week. He returned to work on reduced schedule last week which went well. Believes that he is back to his baseline. He shared the skills that he has been utilizing. Feels that the program has been very beneficial. He is able to identify the cognitive distortions that he frequency uses (catastrophizing, should statements) and ways to challenge and reframe. Identifies anxiety triggers (change) and ways to calm (mindfulness, breathing, reframing). Pt presented to the [facility] ER on 12/09/21 due acute decompensation, significant distress, passive thoughts of , and inability to function. Has responded well to medication changes and treatment indicating reduce in frequency, intensity, and duration of emotional distress. Returned to work and able to perform responsibilities. Pt requesting to be discharged from [facility]. This therapist had concerns as he has only attended 6 IOP sessions, has no aftercare set-up, and has only been to work (primary stressor) for 2 days. Fearful that he may decompensation if work provides a stressor and without support he may end up back in ER. Pt wants to return to work full-time this week. He agreed to remain admitted to [facility] and will attend one day next week to meet with program psychiatrist and therapist. If he continues to report stability and is functioning at work the plan would be to discharge. Pt was given a list of MH providers in the area to follow-up with. Time Stopped:: 11:25
--- NOTE | 2022-01-04 16:07 | BH.DS ---
Discharge Summary - Demographics Discharge Date: 01/04/22
== END 2022-01-01 23:59 ==
LOC: BHIOP 08:00
PROVIDERS: PCP Family Medicine; Referring Provider Psychiatry & Neurology Psychiatry; Visit Provider Psychiatry & Neurology Psychiatry
DX: F41.1 Generalized anxiety disorder (principal); F33.2 Major depressive disorder, recurrent severe without psychotic features; Z79.899 Other long term (current) drug therapy
CPT/HCPCS: S9480; 90832; 90837; 90853